=== PATIENT | female | born 1985 ===

== ENCOUNTER 2017-10-11 17:06 | Inpatient (IN) ==
[2017-10-11 17:39] LABS: Apearance,Urine CLEAR (Clear); Bilirubin,Urine Negative (Negative); Blood, Urine Negative (Negative); Glucose,Urine (UA) Negative (Negative); Ketones,Urine 80 mg/dL (Negative); Nitrite,Urine Negative (Negative); Protein,Urine Negative; RBC,Urine <1 /HPF (0-4); Squamous Epithelial Cell,Urine Occasional /HPF (0-10); Urine Color Yellow (Yellow); Urine Specific Gravity 1.003 (1.001-1.035); WBC,Urine 1 /HPF (0-6)
[2017-10-11] MEDS ORDERED: LACTATED RINGERS 1,000 ML IV ONE (18:21)
[2017-10-11] MEDS ORDERED: CITRIC ACID/SODIUM CITRATE 30 ML UDCUP PO ONE (19:42)
[2017-10-11] MEDS ORDERED: FAMOTIDINE 20 MG/2 ML VIAL IV ONE (19:42)
[2017-10-11] MEDS ORDERED: ceFAZolin 2,000 MG in PREMIX 1 EACH IV ONE (19:42)
[2017-10-11] MEDS ORDERED: CITRIC ACID/SODIUM CITRATE 30 ML UDCUP ONE (19:43)
[2017-10-11] MEDS ORDERED: SODIUM CHLORIDE 0.9% 100 ML IV ONE (19:43)
[2017-10-11] MEDS ORDERED: OXYTOCIN/LR 20 UNIT/1,000 ML BAG IV ONE ×4 (19:44→22:49)
[2017-10-11] MEDS ORDERED: METHYLERGONOVINE 0.2 MG/1 ML AMP ONE ×2 (19:44→20:28)
[2017-10-11] MEDS ORDERED: SODIUM CHLORIDE 0.9% 1,000 ML IV PRN (19:46)
[2017-10-11 20:00] LABS: Basophils % 0.2 % (0.0-0.8); Eosinophils # 0.1 10*3/uL (0.0-0.87); Hematocrit 27.5 VOL% (35.7-47.0); Hemoglobin 8.4 GM/DL (12.0-16.0); Immature Granulocytes % 0.4 %; Immature Granulocytes Absolute 0.04 #; Lymphocytes # 2.4 10*3/uL (1.4-4.0); Lymphocytes % 24.8 % (21.3-54.2); Mean Corpuscular HGB Conc 30.5 GM/DL (32-36); Mean Corpuscular Hemoglobin 27 PG (27-34); Mean Corpuscular Volume 89.3 FL (87-102); Mean Platelet Volume 9.7 FL (9.6-12.0); Monocytes # 0.5 10*3/uL (0.11-0.8); Monocytes % 4.8 % (1.7-12.7); Neutrophils # 6.6 10*3/uL (1.4-7.4); Neutrophils % 68.8 % (38.7-73.9); Platelet Count 372 T/CUMM (130-400); Red Blood Count 3.08 MC/CUMM (3.8-5.5); Red Cell Distribution Width 17.5 % (9.3-17.3); White Blood Count 9.5 T/CUMM (4-12)
[2017-10-11] MEDS ORDERED: LACTATED RINGERS 1,000 ML IV SCH (20:00)
[2017-10-11] MEDS: SODIUM CHLORIDE 0.9% 1,000 ML IV SCH (20:10)
[2017-10-11 20:19] LABS: Albumin 2.4 G/DL (3.4-5.0); Bilirubin,Total 0.5 MG/DL (0.2-1.0); Calcium 7.9 MG/DL (8.5-10.1); Potassium 3.5 MMOL/L (3.5-5.1); Total Protein 5.6 G/DL (6.4-8.3)
[2017-10-11 20:53] LABS: Cord Venous Blood HCO3 21.3 MMOL/L; Cord Venous Blood PCO2 41.5 MMHG; Cord Venous Blood PO2 36.2
[2017-10-11 20:56] LABS: Cord Arterial Blood HCO3 21.9 MMOL/L
[2017-10-11] MEDS ORDERED: PROPOFOL 200 MG/20 ML VIAL IV ONE (21:37)
[2017-10-11] MEDS ORDERED: ETOMIDATE 20 MG/10 ML VIAL IV ONE (21:37)
[2017-10-11] MEDS ORDERED: OXYTOCIN 10 UNIT/ML VIAL ONE (21:37)
[2017-10-11] MEDS ORDERED: PHENYLEPHRINE 1 MG/10 ML SYRINGE IV ONE (21:37)
[2017-10-11] MEDS ORDERED: SUCCINYLCHOLINE 200 MG/10 ML VIAL ONE (21:38)
[2017-10-11] MEDS ORDERED: fentaNYL 100 MCG/2 ML VIAL ONE (21:39)
[2017-10-11] MEDS ORDERED: MIDAZOLAM 2 MG/2 ML VIAL ONE (21:39)
[2017-10-11] MEDS ORDERED: ONDANSETRON 4 MG/2 ML VIAL ONE (22:16)
[2017-10-11] MEDS ORDERED: ONDANSETRON 4 MG/2 ML VIAL IV PRN ×2 (22:20→22:49)
[2017-10-11] MEDS: HYDROmorphone 2 MG/1 ML VIAL IV PRN (22:20)
[2017-10-11] MEDS ORDERED: cefOXitin 2,000 MG in SYRINGE 1 EACH IV ONE (22:27)
[2017-10-11] MEDS ORDERED: SIMETHICONE CHEW 80 MG TABLET PO PRN (22:49)
[2017-10-11] MEDS ORDERED: RHO(D) IMMUNE GLOBULIN 300 MCG SYRINGE IM ONE (22:49)
[2017-10-11] MEDS ORDERED: MAGNESIUM HYDROXIDE SUSP 30 ML UDCUP PO PRN (22:49)
[2017-10-12 01:08] LABS: HIV Antigen/Antibody Result Nonreactive (Nonreactive); Hepatitis B Surface Ag Quant < 0.10 Index; Hepatitis B Surface Ag Result Negative (Negative)
[2017-10-12] MEDS: HYDROmorphone 2 MG/1 ML VIAL IV PRN (01:30)
[2017-10-12] MEDS: SODIUM CHLORIDE 0.9% 1,000 ML IV SCH (03:29)
[2017-10-12] MEDS: IBUPROFEN 800 MG TABLET PO SCH ×3 (07:39→21:16)
[2017-10-12 08:14] LABS: Basophils % 0.2 % (0.0-0.8); Eosinophils % 0.2 % (0.00-10.9); Hematocrit 28.5 VOL% (35.7-47.0); Hemoglobin 9.3 GM/DL (12.0-16.0); Immature Granulocytes % 0.8 %; Immature Granulocytes Absolute 0.16 #; Lymphocytes # 1.9 10*3/uL (1.4-4.0); Lymphocytes % 9.7 % (21.3-54.2); Mean Corpuscular HGB Conc 32.6 GM/DL (32-36); Mean Corpuscular Hemoglobin 28 PG (27-34); Mean Corpuscular Volume 87.2 FL (87-102); Mean Platelet Volume 10.1 FL (9.6-12.0); Monocytes # 1.2 10*3/uL (0.11-0.8); Monocytes % 6.2 % (1.7-12.7); NRBC # 0.02 10*3/uL; Neutrophils # 16.3 10*3/uL (1.4-7.4); Neutrophils % 82.9 % (38.7-73.9); Platelet Count 293 T/CUMM (130-400); Red Blood Count 3.27 MC/CUMM (3.8-5.5); White Blood Count 19.6 T/CUMM (4-12)
[2017-10-12] MEDS: DOCUSATE SODIUM 100 MG CAPSULE PO SCH ×2 (09:59→21:15)
[2017-10-12] MEDS: MULTIVITAMIN (PRENATAL) TABLET PO SCH (09:59)
[2017-10-12] MEDS ORDERED: ceFAZolin 1,000 MG in SYRINGE 1 EACH IV ONE (12:24)
[2017-10-12] MEDS: SERTRALINE 25 MG TABLET PO SCH (21:16)
[2017-10-13] MEDS: IBUPROFEN 800 MG TABLET PO SCH ×3 (07:49→15:43)
[2017-10-13] MEDS: DOCUSATE SODIUM 100 MG CAPSULE PO SCH ×2 (08:44→21:54)
[2017-10-13] MEDS: MULTIVITAMIN (PRENATAL) TABLET PO SCH (08:44)
[2017-10-13] MEDS: SERTRALINE 25 MG TABLET PO SCH (21:54)
[2017-10-14] MEDS: IBUPROFEN 800 MG TABLET PO SCH (04:42)
[2017-10-14 07:35] VITALS: BP 103/63
[2017-10-14] MEDS: MULTIVITAMIN (PRENATAL) TABLET PO SCH (09:02)
[2017-10-14] MEDS: DOCUSATE SODIUM 100 MG CAPSULE PO SCH (09:02)
== END 2017-10-14 13:20 | disposition home or self-care (01) | DRG 540 ==
LOC: N.LDOUT 17:06 → N.LD 17:10 → N.OB 10-12 10:25
PROVIDERS: ADMIT Obstetrics & Gynecology; ATTEND Obstetrics & Gynecology